=== PATIENT | female | born 1980 | race Caucasian/White ===

== ENCOUNTER → 2016-09-24 | Outpatient (CLI) | payer MEDICAID | END | disposition home or self-care (01) | LOC: MMGSC 16:41 | PROVIDERS: ATTEND Family Medicine | DX: E03.9 Hypothyroidism, unspecified (principal) | CPT/HCPCS: 36415; 84439; 84443 ==

== ENCOUNTER → 2017-02-04 | Outpatient (CLI) | payer MEDICAID, OTHER ==
[2017-02-04 21:14] LABS: Basophils # (A) 0.1 k/uL (0-0.2); Basophils % (A) 1 %; CH 26.9; Eosinophils # (A) 0.4 k/uL (0-0.7); Eosinophils % (A) 5 %; HCT 44.7 % (34.0-46.0); HDW 2.67; Hypochromasia Moderate; Luc # (Auto) 0.11; Luc % (Auto) 1; Lymphocytes # (A) 2.5 k/uL (1.0-4.8); Lymphocytes % (A) 31 %; MCH 27.2 pg (25.0-35.0); MCHC 31.3 g/dL (31.0-37.0); MCV 87.2 fL (80.0-100.0); Mean Platelet Volume 8.5; Monocytes # (A) 0.4 k/uL (0-1.0); Monocytes % (A) 4 %; Neutrophils # (A) 4.6 k/uL (1.3-7.7); Neutrophils % (A) 58 %; RBC 5.13 m/uL (3.80-5.40); RDW 14.8 % (11.5-15.5); WBC (Perox) 7.13
[2017-02-04 21:17] LABS: ALT 86 U/L (9-52); AST 73 U/L (14-36); Alkaline Phosphatase 65 U/L (38-126); Anion Gap 16 mmol/L; Blood Urea Nitrogen 11 mg/dL (7-17); Calcium 9.5 mg/dL (8.4-10.2); Carbon Dioxide 27 mmol/L (22-30); Chloride 103 mmol/L (98-107); Cholesterol 193 mg/dL (<200); Glucose 85 mg/dL (74-99); HDL Cholesterol 36 mg/dL (40-60); Non-African American GFR(MDRD) >60 (>60 ml/min/1.73 sqM); Sodium 146 mmol/L (137-145); Total Bilirubin 0.3 mg/dL (0.2-1.3); Total Protein 7.9 g/dL (6.3-8.2); Triglycerides 281 mg/dL (<150)
== END ==
LOC: MMGSC 15:48
PROVIDERS: ATTEND Family Medicine
DX: Z00.00 Encounter for general adult medical examination without abnormal findings (principal)
CPT/HCPCS: 36415; 80053; 80061; 84439; 84443; 85025

== ENCOUNTER → 2017-03-21 | Outpatient (CLI) | payer BC ==
[2017-03-21 14:27] VITALS: BP 136/83; PULSE 82; RESP 16; TEMP 97.1; BMI 52.7
--- NOTE | 2017-03-21 15:09 | P.HPBAR ---
Bariatric H&P - History & Physicial H&P Date: 03/21/17 History & Physicial: Visit/CC: sleeve consult Patient initial contact: Initial weight: 142.836 kg Initial weight in pounds: 314.90 Height: 5 ft 4.76 in Initial BMI: 52.7 Last weight: Current weight: 142.836 kg Current weight in pounds: 314.90 Current BMI: 52.7 [place] body weight (based on NIH guidelines): 56.155 kg Excess body weight loss: 0.0% The patient is a 36 year-old F who presents for Bariatric Assessment. Patient seen today at the bariatric clinic for a new patient evaluation. The patient has family members that have had both a gastric bypass and the sleeve gastrectomy. Patient is interested in sleeve gastrectomy at this point. The patient suffers from hypertension. She did have gestational diabetes in the past. Denies any history of DVT or dysphagia in the past. The patient has tried a variety of different weight loss modalities without any sustained weight loss. Review of Systems The patient denies any acute changes in vision or hearing, no dysphagia or odynophagia, no chest pain or shortness of breath, no dysuria or hematuria, no headache, no runny nose, no rectal bleeding or melena, no unexplained weight loss Past Medical History Past Medical History: Asthma, Thyroid Disorder Additional Past Medical History / Comment(s): GESTATIONAL DIABETES,VARICOSE VEINS,VERTIGO,IBS History of Any Multi-Drug Resistant Organisms: None Reported Past Surgical History: Section, Orthopedic Surgery Additional Past Surgical History / Comment(s): EXTERNAL PELVIC FIXATOR APPLIED AND REMOVAL,ORIF LT ANKLE, lasic, x2 Past Anesthesia/Blood Transfusion Reactions: Motion Sickness Past Psychological History: No Psychological Hx Reported Additional Psychological History / Comment(s): 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, since resolved Smoking Status: Never smoker Past Alcohol Use History: Rare Past Drug Use History: None Reported - Past Family History Father Family Medical History: Coronary Artery Disease (CAD), Diabetes Mellitus Additional Family Medical History / Comment(s): at age 62 Brother(s) Family Medical History: Cancer Additional Family Medical History / Comment(s): LYMPHOMA Mother Family Medical History: Deep Vein Thrombosis (DVT), Pulmonary Embolus Surgical - Exam Vital Signs Temp Pulse Resp BP 97.1 F L 82 16 136/83 03/21/17 14:20 03/21/17 14:20 03/21/17 14:20 03/21/17 14:20 Physical exam: General: Well-developed, well-nourished HEENT: Normocephalic, sclerae nonicteric Abdomen: Nontender, nondistended Extremities: No edema Neuro: Alert and oriented Bariatric Assessment & Plan (1) Morbid obesity Narrative/Plan: The surgical risks and benefits were discussed in detail with the patient today. All questions were appropriately answered. We'll tentatively schedule for basic lab work and upper endoscopy as a preoperative evaluation. Definitive bariatric procedure scheduling to follow. Status: Acute Bariatric Checklist Checklist: Plan: Checklist: EGD: 1. Hiatal hernia: 2. H. Pylori: HgbA1c: Vitamin D: Smoking: Never smoker Primary care physician referral: Carrol Merritt ([place]) Psychiatry clearance: Cardiology clearance: Sleep study: Diet journal: VTE risk score: VTE risk level: Rehab needs at discharge:
[2017-03-21 15:28] LABS: EKG EKG PERFORMED
[2017-03-21 16:05] LABS: CHCM 31.2; HGB 13.2 gm/dL (11.4-16.0); Hypochromasia Slight; MCHC 32.3 g/dL (31.0-37.0); MCV 86.9 fL (80.0-100.0); Mean Platelet Volume 7.9; RBC 4.72 m/uL (3.80-5.40); WBC 7.8 k/uL (3.8-10.6)
[2017-03-21 16:24] LABS: ALT 123 U/L (9-52); AST 87 U/L (14-36); Alkaline Phosphatase 61 U/L (38-126); Anion Gap 10 mmol/L; Blood Urea Nitrogen 11 mg/dL (7-17); Calcium 9.2 mg/dL (8.4-10.2); Carbon Dioxide 27 mmol/L (22-30); Chloride 105 mmol/L (98-107); Glucose 81 mg/dL (74-99); Iron 50 ug/dL (37-170); Non-African American GFR(MDRD) >60 (>60 ml/min/1.73 sqM); Potassium 4.5 mmol/L (3.5-5.1); Sodium 142 mmol/L (137-145); Total Bilirubin 0.3 mg/dL (0.2-1.3); Total Protein 7.5 g/dL (6.3-8.2)
[2017-03-21 17:11] LABS: Vitamin B12 298 pg/mL (239-931)
[2017-03-22 04:22] LABS: Hemoglobin A1C 5.7 % (4.2-6.1)
== END | disposition home or self-care (01) ==
LOC: BARWHC3 13:46
PROVIDERS: ATTEND Surgery
DX: E66.01 Morbid (severe) obesity due to excess calories (principal); K90.89 Other intestinal malabsorption; E55.9 Vitamin D deficiency, unspecified; I10 Essential (primary) hypertension; Z68.43 Body mass index [BMI] 50.0-59.9, adult
CPT/HCPCS: 80053; 82306; 82607; 83036; 83540; 84425; 85027; 93005; 99201

== ENCOUNTER 2017-04-19 12:06 | Day surgery (SDC) | payer BC ==
[2017-04-17 16:01] VITALS: BMI 51.7
[~2017-04-19 12:06] MED LIST: LACTATED RINGERS 1,000 ML IV SCH; LIDOCAINE 1% 20 ML VIAL (10MG/ML) FOR IV START INTRADERMA PRN
[2017-04-19 12:57] VITALS: TEMP 97.2
[2017-04-19 13:22] LABS: Glucose,Whole Blood 83 mg/dL (75-99)
[2017-04-19] MEDS ORDERED: LIDOCAINE 1% INJ 10MG/ML (20 ML MDV) ONE (13:55)
[2017-04-19] MEDS ORDERED: GLYCOPYRROLATE 0.2 MG/ML 2 ML VIAL ONE (13:55)
[2017-04-19] MEDS ORDERED: PROPOFOL 10 MG/ML 20 ML VIAL IV ONE (13:55)
--- NOTE | 2017-04-19 13:58 | P.GSHP ---
History of Present Illness H&P Date: 04/19/17 Chief Complaint: GERD Patient today for upper endoscopy. She's been worked up for possible bariatric surgery. She has mild intermittent reflux. Denies dysphagia. Past Medical History Past Medical History: Asthma, Thyroid Disorder Additional Past Medical History / Comment(s): HAD GESTATIONAL DIABETES,VARICOSE VEINS,VERTIGO,IBS History of Any Multi-Drug Resistant Organisms: None Reported Past Surgical History: Section, Orthopedic Surgery, Tubal Ligation Additional Past Surgical History / Comment(s): EXTERNAL PELVIC FIXATOR APPLIED AND REMOVAL,ORIF LT ANKLE, lasic, x2 Past Anesthesia/Blood Transfusion Reactions: Motion Sickness Smoking Status: Never smoker - Past Family History Father Family Medical History: Coronary Artery Disease (CAD), Diabetes Mellitus Additional Family Medical History / Comment(s): at age 62 Brother(s) Family Medical History: Cancer Additional Family Medical History / Comment(s): LYMPHOMA Mother Family Medical History: Deep Vein Thrombosis (DVT), Pulmonary Embolus Medications and Allergies Home Medications Medication Instructions Recorded Confirmed Type Levothyroxine Sodium [Synthroid] 100 mcg PO DAILY 08/20/14 04/19/17 History Albuterol Sulfate [Proair Hfa] 1 - 2 puff INHALATION Q6HR PRN 03/21/17 04/19/17 History Cholestyramine (with Sugar) 4 gm PO DAILY 03/21/17 04/19/17 History [Cholestyramine Packet] Triamterene-Hctz 37.5-25Mg 1 cap PO DAILY 03/21/17 04/19/17 History [Dyazide 37.5-25 Capsule] Ergocalciferol (Vitamin D2) 50,000 unit PO Q7D 04/17/17 04/19/17 History [Vitamin D2] Allergies Allergy/AdvReac Type Severity Reaction Status Date / Time egg Allergy Diarrhea Verified 04/19/17 12:40 lactose Allergy Diarrhea Verified 04/19/17 12:40 latex Allergy Rash/Hives Verified 04/19/17 12:40 soy Allergy Diarrhea Verified 04/19/17 12:40 Surgical - Exam Vital Signs Temp Pulse Resp BP Pulse Ox 97.2 F L 88 18 141/84 97 04/19/17 12:56 04/19/17 12:56 04/19/17 12:56 04/19/17 12:56 04/19/17 12:56 Physical exam: General: Well-developed, well-nourished HEENT: Normocephalic, sclerae nonicteric Abdomen: Nontender, nondistended Extremities: No edema Neuro: Alert and oriented Assessment and Plan (1) GERD (gastroesophageal reflux disease) Narrative/Plan: Will proceed with upper endoscopy at this time. Status: Acute
--- NOTE | 2017-04-19 14:12 | P.PCN ---
Date of Procedure: 04/19/17 Preoperative Diagnosis: Postoperative Diagnosis: Procedure(s) Performed: Preoperative Dx: GERD Postoperative Dx: Gastritis with small erosions Procedure: EGD with Bx Anesthesia: Sedation Endoscopist: Dr. Fang Specimens: Antrum Endoscopic Procedure: The patient was on the endoscopy table in the left decubitus position. The Olympus gastroscope was inserted into the oropharynx and passed under direct visualization to the region of the third portion of the duodenum. From that point the scope was slowly withdrawn inspecting all surfaces carefully. There were no neoplastic inflammatory or polypoid lesions throughout the duodenum. The pylorus was widely patent. The stomach was carefully inspected. There was antritis present with a few small erosions. A biopsy of the antrum took place to rule out H. pylori. Retroflexion revealed a normal hiatus. The esophagus was then carefully examined. There were no neoplastic inflammatory or polypoid lesions throughout the visualized esophagus. The patient was then taken to the recovery room in stable condition per anesthesia guidelines. Recommendations: Will begin antiacid therapy. Await biopsy results. Patient will follow up in the bariatric clinic in 3-4 weeks. Implants: Indications for Procedure: Operative Findings: Description of Procedure:
[2017-04-19 14:13] VITALS: RESP 16
[2017-04-19 14:41] VITALS: BP 136/91; PULSE 76
== END 2017-04-19 14:55 | disposition home or self-care (01) ==
LOC: ORWHC2ENDO 12:06
PROVIDERS: ATTEND Surgery
DX: K29.50 Unspecified chronic gastritis without bleeding (principal); J45.909 Unspecified asthma, uncomplicated; E07.9 Disorder of thyroid, unspecified; I10 Essential (primary) hypertension; Z79.899 Other long term (current) drug therapy; Z91.012 Allergy to eggs; Z91.040 Latex allergy status; Z91.011 Allergy to milk products
CPT/HCPCS: 81025; 88305; 88342; 43239; J2001; J2704

== ENCOUNTER → 2017-04-22 | Outpatient (CLI) | payer BC | END | disposition home or self-care (01) | LOC: MMGSC 09:31 | PROVIDERS: ATTEND Family Medicine | DX: E55.9 Vitamin D deficiency, unspecified (principal) | CPT/HCPCS: 36415; 82306 ==

== ENCOUNTER → 2017-05-06 | Outpatient (CLI) | payer BC ==
--- NOTE | 2017-05-06 12:17 | US ---
EXAMINATION TYPE: US liver DATE OF EXAM: 05/06/2017 COMPARISON: NONE CLINICAL HISTORY: Elevated LFTs R94.5. no symptoms EXAM MEASUREMENTS: Liver Length: 19.9 cm Gallbladder Wall: 0.2 cm CBD: 0.6 cm Right Kidney: 11.9 x 5.1 x 4.6 cm limited visibility due to bowel gas and habitus Pancreas: limited views appear, wnl Liver: difficult to penetrate, enlarged Gallbladder: wnl Evidence for sonographic Nassar's sign: no CBD: wnl Right Kidney: wnl There appears to be moderate fatty infiltration to the liver. Hepatomegaly is present in 19.9 cm. Nor mal less than 15.5 cm. IMPRESSION: 1. Hepatomegaly with moderate fatty infiltration liver.
== END | disposition home or self-care (01) ==
LOC: RADUSWWP 08:13
PROVIDERS: ATTEND Family Medicine
DX: K76.0 Fatty (change of) liver, not elsewhere classified (principal)
CPT/HCPCS: 76705

== ENCOUNTER → 2017-07-22 | Outpatient (CLI) | payer BC ==
[2017-07-22 12:53] VITALS: BMI 53.6
== END ==
LOC: BARWHC3 08:39
PROVIDERS: ATTEND Surgery
DX: Z71.3 Dietary counseling and surveillance (principal); E66.01 Morbid (severe) obesity due to excess calories; Z68.43 Body mass index [BMI] 50.0-59.9, adult
CPT/HCPCS: 97804

== ENCOUNTER → 2017-08-06 | Outpatient (CLI) | payer BC ==
[2017-08-06 13:03] LABS: Basophils % (A) 1 %; CH 26.5; CHCM 30.4; Eosinophils # (A) 0.3 k/uL (0-0.7); Eosinophils % (A) 4 %; HCT 41.9 % (34.0-46.0); HDW 2.43; HGB 12.9 gm/dL (11.4-16.0); Hypochromasia Moderate; Luc # (Auto) 0.15; Luc % (Auto) 2; Lymphocytes # (A) 2.2 k/uL (1.0-4.8); Lymphocytes % (A) 32 %; MCH 26.9 pg (25.0-35.0); MCHC 30.8 g/dL (31.0-37.0); MCV 87.5 fL (80.0-100.0); Mean Platelet Volume 8.1; Monocytes # (A) 0.3 k/uL (0-1.0); Monocytes % (A) 4 %; Neutrophils # (A) 3.9 k/uL (1.3-7.7); Neutrophils % (A) 57 %; RBC 4.79 m/uL (3.80-5.40); RDW 15.5 % (11.5-15.5); WBC 6.8 k/uL (3.8-10.6)
[2017-08-06 13:20] LABS: ALT 136 U/L (9-52); AST 109 U/L (14-36); Alkaline Phosphatase 53 U/L (38-126); Anion Gap 12 mmol/L; Blood Urea Nitrogen 17 mg/dL (7-17); Carbon Dioxide 28 mmol/L (22-30); Chloride 102 mmol/L (98-107); Glucose 86 mg/dL (74-99); Non-African American GFR(MDRD) >60 (>60 ml/min/1.73 sqM); Potassium 4.3 mmol/L (3.5-5.1); Sodium 142 mmol/L (137-145); Total Bilirubin 0.5 mg/dL (0.2-1.3); Total Protein 8.3 g/dL (6.3-8.2)
== END | disposition home or self-care (01) ==
LOC: LABPAT 12:08
PROVIDERS: ATTEND Surgery
DX: Z01.812 Encounter for preprocedural laboratory examination (principal)
CPT/HCPCS: 36415; 80053; 85025

== ENCOUNTER → 2017-08-27 | Outpatient (CLI) | payer BC ==
[2017-08-27 12:49] VITALS: BMI 47.8
[2017-08-27 12:56] VITALS: BP 115/91; PULSE 80; RESP 20; TEMP 98.3
--- NOTE | 2017-09-12 13:51 | P.BASOAP ---
Subjective Progress Note Date: 09/12/17 Principal diagnosis: Morbid obesity Patient returns after recent sleeve gastrectomy. Doing well. Mild discomforts are improving. Tolerating liquid and protein. No heartburn. Objective - Vital Signs Vital signs: Vital Signs Temp 98.3 F 08/27/17 12:40 Pulse 80 08/27/17 12:40 Resp 20 08/27/17 12:40 BP 115/91 08/27/17 12:40 Pulse Ox - Exam Abdomen: Incisions clean and dry, minimal tenderness Assessment/Plan (1) Morbid obesity Narrative/Plan: Continue gradually advancing diet. Gradually increase activity as well. Follow -up 2-3 weeks. Plan: Date: 08/27/17 Initial Weight: 142.836 kg Initial BMI: 52.8 Current Weight: 129.41 kg Current BMI: 47.8 Type of Surgery: Total Volume in Band: Previous Volume: Volume Removed: Volume Added: Band Size:
== END | disposition home or self-care (01) ==
LOC: BARWHC3 12:26
PROVIDERS: ATTEND Surgery
DX: E66.01 Morbid (severe) obesity due to excess calories (principal); E55.9 Vitamin D deficiency, unspecified; Z68.42 Body mass index [BMI] 45.0-49.9, adult
CPT/HCPCS: 97803; 99201; 99211

== ENCOUNTER → 2017-09-23 | Outpatient (CLI) | payer BC ==
[2017-09-23 09:04] LABS: ALT 94 U/L (9-52); AST 64 U/L (14-36); Albumin 4.3 g/dL (3.5-5.0); Alkaline Phosphatase 53 U/L (38-126); Anion Gap 12 mmol/L; Blood Urea Nitrogen 14 mg/dL (7-17); Calcium 9.9 mg/dL (8.4-10.2); Carbon Dioxide 29 mmol/L (22-30); Chloride 106 mmol/L (98-107); Glucose 108 mg/dL (74-99); Potassium 4.2 mmol/L (3.5-5.1); Sodium 147 mmol/L (137-145); Total Bilirubin 0.5 mg/dL (0.2-1.3); Total Protein 7.7 g/dL (6.3-8.2)
[2017-09-23 09:16] LABS: Anisocytosis Slight; HCT 45.7 % (34.0-46.0); HGB 13.9 gm/dL (11.4-16.0); Hypochromasia Moderate; MCH 26.9 pg (25.0-35.0); MCHC 30.4 g/dL (31.0-37.0); MCV 88.5 fL (80.0-100.0); Mean Platelet Volume 9.3; Platelet Count 219 k/uL (150-450); RBC 5.17 m/uL (3.80-5.40); RDW 16.3 % (11.5-15.5); WBC 5.4 k/uL (3.8-10.6)
[2017-09-23 15:56] LABS: Vitamin D 25 Hydroxy 25.4 ng/mL (30.0-100.0)
[2017-09-24 13:05] LABS: Vitamin A 34 ug/dL (38-106)
[2017-09-25 02:26] LABS: Vitamin B1 44 ug/L (38-122)
== END | disposition home or self-care (01) ==
LOC: LABWHC1 08:12
PROVIDERS: ATTEND Surgery
DX: E66.01 Morbid (severe) obesity due to excess calories (principal); E55.9 Vitamin D deficiency, unspecified; K90.89 Other intestinal malabsorption; K90.9 Intestinal malabsorption, unspecified; R79.89 Other specified abnormal findings of blood chemistry
CPT/HCPCS: 36415; 80053; 82306; 82607; 83540; 84425; 84590; 85027

== ENCOUNTER → 2017-09-24 | Outpatient (CLI) | payer BC ==
[2017-09-24 14:40] VITALS: BMI 46.4
--- NOTE | 2017-09-24 17:10 | P.BASOAP ---
Subjective Progress Note Date: 09/24/17 Principal diagnosis: Morbid obesity Patient returns for evaluation. Had labs just yesterday which showed a low iron , vitamin A, and vitamin D mild nausea at times and she has had 2 episodes of emesis. Overall she believes she is improving gradually. Protein and liquid intake in good range. Good Weight loss. Objective - Vital Signs Vital signs: Intake & Output 09/23/17 09/24/17 09/24/17 18:59 06:59 18:59 Weight 125.645 kg - Exam Abdomen: Soft, nondistended, nontender, incision clean and dry Assessment/Plan (1) Morbid obesity Narrative/Plan: Continue vitamin supplementation. Continue antiacid therapy. Zofran when necessary. Follow-up 6 weeks. Plan: Date: 09/24/17 Initial Weight: 142.836 kg Initial BMI: 52.8 Current Weight: 125.645 kg Current BMI: 46.4 Type of Surgery: Total Volume in Band: Previous Volume: Volume Removed: Volume Added: Band Size:
== END | disposition home or self-care (01) ==
LOC: BARWHC3 14:15
PROVIDERS: ATTEND Surgery
DX: E66.01 Morbid (severe) obesity due to excess calories (principal); Z68.42 Body mass index [BMI] 45.0-49.9, adult
CPT/HCPCS: 97803; 99211

== ENCOUNTER → 2017-10-29 | Outpatient (CLI) | payer BC ==
[2017-10-29 15:06] VITALS: BMI 43.2
[2017-10-29 15:11] VITALS: BP 130/82; PULSE 88; RESP 16; TEMP 98.1
--- NOTE | 2017-10-29 15:16 | P.BASOAP ---
Subjective Progress Note Date: 10/29/17 Principal diagnosis: Morbid obesity Patient doing well today. No pain. No heartburn while taking Prilosec. No dysphagia. She has lost 20 pounds in the last 5 weeks. She is due for a 3 month labs at the end of this month. Energy level has improved. Still taking her vitamins. Objective - Vital Signs Vital signs: Vital Signs Temp 98.1 F 10/29/17 15:08 Pulse 88 10/29/17 15:08 Resp 16 10/29/17 15:08 BP 130/82 10/29/17 15:08 Pulse Ox Intake & Output 10/28/17 10/29/17 10/29/17 18:59 06:59 18:59 Weight 116.981 kg - Exam Abdomen: Soft, nondistended, nontender Assessment/Plan (1) Morbid obesity Narrative/Plan: Will order three-month lab work. Continue omeprazole for now. Continue increasing activity. Dietary evaluation today. Follow-up with me in 4-6 weeks. Plan: Date: 10/29/17 Initial Weight: 142.836 kg Initial BMI: 52.8 Current Weight: 116.981 kg Current BMI: 43.2 Type of Surgery: Total Volume in Band: Previous Volume: Volume Removed: Volume Added: Band Size:
== END | disposition home or self-care (01) ==
LOC: BARWHC3 14:12
PROVIDERS: ATTEND Surgery
DX: Z09 Encounter for follow-up examination after completed treatment for conditions other than malignant neoplasm (principal); E66.01 Morbid (severe) obesity due to excess calories; E55.9 Vitamin D deficiency, unspecified; K90.89 Other intestinal malabsorption; Z68.43 Body mass index [BMI] 50.0-59.9, adult
CPT/HCPCS: 97803; 99211

== ENCOUNTER → 2017-11-25 | Outpatient (CLI) | payer BC ==
[2017-11-25 18:49] LABS: Basophils % (A) 1 %; Eosinophils # (A) 0.2 k/uL (0-0.7); Eosinophils % (A) 4 %; HCT 42.6 % (34.0-46.0); HGB 13.8 gm/dL (11.4-16.0); Lymphocytes # (A) 1.8 k/uL (1.0-4.8); Lymphocytes % (A) 29 %; MCH 27.4 pg (25.0-35.0); MCHC 32.3 g/dL (31.0-37.0); MCV 84.7 fL (80.0-100.0); Mean Platelet Volume 9.4; Monocytes # (A) 0.2 k/uL (0-1.0); Monocytes % (A) 4 %; Neutrophils # (A) 3.7 k/uL (1.3-7.7); Neutrophils % (A) 61 %; Platelet Count 223 k/uL (150-450); RBC 5.03 m/uL (3.80-5.40); RDW 15.1 % (11.5-15.5); WBC 6.1 k/uL (3.8-10.6)
[2017-11-25 18:59] LABS: ALT 60 U/L (9-52); AST 49 U/L (14-36); Albumin 4.2 g/dL (3.5-5.0); Alkaline Phosphatase 60 U/L (38-126); Anion Gap 11 mmol/L; Blood Urea Nitrogen 13 mg/dL (7-17); Calcium 9.8 mg/dL (8.4-10.2); Carbon Dioxide 30 mmol/L (22-30); Chloride 102 mmol/L (98-107); Cholesterol 208 mg/dL (<200); Glucose 99 mg/dL (74-99); HDL Cholesterol 36 mg/dL (40-60); LDL Cholesterol,Calculated 137 mg/dL (0-99); Potassium 3.7 mmol/L (3.5-5.1); Sodium 143 mmol/L (137-145); Total Bilirubin 0.6 mg/dL (0.2-1.3); Total Protein 7.8 g/dL (6.3-8.2); Triglycerides 173 mg/dL (<150)
== END | disposition home or self-care (01) ==
LOC: MMGSC 10:14
PROVIDERS: ATTEND Family Medicine
DX: Z00.00 Encounter for general adult medical examination without abnormal findings (principal); E03.9 Hypothyroidism, unspecified; Z98.84 Bariatric surgery status
CPT/HCPCS: 36415; 80053; 80061; 82306; 82607; 84439; 84443; 85025

== ENCOUNTER → 2017-12-02 | Outpatient (CLI) | payer BC ==
[2017-12-02 14:01] LABS: HCT 42.7 % (34.0-46.0); HGB 14.1 gm/dL (11.4-16.0); MCH 27.8 pg (25.0-35.0); MCHC 32.9 g/dL (31.0-37.0); MCV 84.4 fL (80.0-100.0); Platelet Count 245 k/uL (150-450); RBC 5.05 m/uL (3.80-5.40); RDW 14.9 % (11.5-15.5); WBC 9.1 k/uL (3.8-10.6)
[2017-12-02 14:12] LABS: ALT 49 U/L (9-52); AST 48 U/L (14-36); Albumin 4.5 g/dL (3.5-5.0); Alkaline Phosphatase 70 U/L (38-126); Anion Gap 13 mmol/L; Blood Urea Nitrogen 13 mg/dL (7-17); Carbon Dioxide 30 mmol/L (22-30); Chloride 99 mmol/L (98-107); Glucose 89 mg/dL (74-99); Potassium 3.7 mmol/L (3.5-5.1); Sodium 142 mmol/L (137-145); Total Bilirubin 0.6 mg/dL (0.2-1.3); Total Protein 8.2 g/dL (6.3-8.2)
[2017-12-02 20:37] LABS: Iron Saturation 8.08 (12.00-45.00)
[2017-12-02 20:44] LABS: Vitamin D 25 Hydroxy 24.3 ng/mL (30.0-100.0)
== END | disposition home or self-care (01) ==
LOC: LABWHC1 13:22
PROVIDERS: ATTEND Surgery
DX: E55.9 Vitamin D deficiency, unspecified (principal); R90.89 Other abnormal findings on diagnostic imaging of central nervous system
CPT/HCPCS: 36415; 80053; 82306; 83540; 83550; 84425; 85027

== ENCOUNTER → 2017-12-10 | Outpatient (CLI) | payer BC ==
[2017-12-10 14:48] VITALS: BP 129/83; PULSE 80; RESP 16; TEMP 97.7; BMI 41.4
--- NOTE | 2017-12-10 16:09 | P.BASOAP ---
Subjective Progress Note Date: 12/10/17 Principal diagnosis: Morbid obesity Patient doing well today. She has had a 12 pound weight loss since last visit. Denies heartburn, no nausea or vomiting, no pain. Her labs from last visit were reviewed and reveal a low iron and a low vitamin D. She is already taking supplementation. Objective - Vital Signs Vital signs: Vital Signs Temp 97.7 F 12/10/17 15:03 Pulse 80 12/10/17 15:03 Resp 16 12/10/17 15:03 BP 129/83 12/10/17 15:03 Pulse Ox Intake & Output 12/09/17 12/10/17 12/10/17 18:59 06:59 18:59 Weight 111.3 kg - Exam Abdomen: Soft, nontender, nondistended Assessment/Plan (1) Morbid obesity Narrative/Plan: Patient doing well at this time. We'll continue vitamin supplementation. Continue dietary and exercise regimen. We'll check 6 months labs at next visit. Plan: Date: 12/10/17 Initial Weight: 142.836 kg Initial BMI: 53.1 Current Weight: 111.3 kg Current BMI: 41.4 Type of Surgery: Total Volume in Band: Previous Volume: Volume Removed: Volume Added: Band Size:
== END | disposition home or self-care (01) ==
LOC: BARWHC3 14:18
PROVIDERS: ATTEND Surgery
DX: E66.01 Morbid (severe) obesity due to excess calories (principal); Z68.41 Body mass index [BMI] 40.0-44.9, adult
CPT/HCPCS: 99211

== ENCOUNTER → 2018-03-24 | Outpatient (CLI) | payer BC ==
[2018-03-24 11:14] LABS: HCT 42.7 % (34.0-46.0); HGB 13.7 gm/dL (11.4-16.0); MCH 28.1 pg (25.0-35.0); MCV 87.8 fL (80.0-100.0); Mean Platelet Volume 7.8; Platelet Count 231 k/uL (150-450); RBC 4.86 m/uL (3.80-5.40); RDW 13.8 % (11.5-15.5)
[2018-03-24 11:24] LABS: ALT 33 U/L (9-52); AST 26 U/L (14-36); Albumin 4.1 g/dL (3.5-5.0); Alkaline Phosphatase 65 U/L (38-126); Anion Gap 12 mmol/L; Blood Urea Nitrogen 16 mg/dL (7-17); Calcium 9.3 mg/dL (8.4-10.2); Carbon Dioxide 30 mmol/L (22-30); Chloride 102 mmol/L (98-107); Glucose 93 mg/dL (74-99); Sodium 144 mmol/L (137-145); Total Bilirubin 0.6 mg/dL (0.2-1.3); Total Protein 7.4 g/dL (6.3-8.2)
[2018-03-24 17:08] LABS: Vitamin D 25 Hydroxy 20.3 ng/mL (30.0-100.0)
[2018-03-24 17:09] LABS: Folate, Serum 3.3 ng/mL
== END | disposition home or self-care (01) ==
LOC: LABWHC1 09:47
PROVIDERS: ATTEND Surgery
DX: K90.89 Other intestinal malabsorption (principal); E55.9 Vitamin D deficiency, unspecified
CPT/HCPCS: 36415; 80053; 82306; 82607; 82746; 83540; 84425; 85027

== ENCOUNTER → 2018-04-08 | Outpatient (CLI) | payer BC ==
[2018-04-08 14:33] VITALS: BP 114/69; PULSE 114; TEMP 97.9; BMI 36.0
--- NOTE | 2018-04-08 14:56 | P.BASOAP ---
Subjective Progress Note Date: 04/08/18 Principal diagnosis: Morbid obesity Patient doing well today. Last appointment was in November. She had her six- month lab work drawn 2 weeks ago. Her vitamin D remains low. She remains on vitamin D supplementation. Denies GERD. Some nausea with room temperature water only. She is no longer taken Zofran. She is no longer taking antiacids. She has had a few episodes of dizziness and her blood pressure was slightly low. She is considering stopping her antihypertensives. She has lost 30 pounds since her last visit. Objective - Vital Signs Vital signs: Vital Signs Temp 97.9 F 04/08/18 14:30 Pulse 114 H 04/08/18 14:30 Resp BP 114/69 04/08/18 14:30 Pulse Ox Intake & Output 04/07/18 04/08/18 04/08/18 18:59 06:59 18:59 Weight 97.522 kg - Exam Abdomen: Soft, nontender, nondistended Assessment/Plan (1) Morbid obesity Narrative/Plan: Continue dietary and exercise regimen. Will discuss with primary care physician regarding stopping her antihypertensive. Follow-up 6 weeks. Plan: Date: 04/08/18 Initial Weight: 142.836 kg Initial BMI: 52.8 Current Weight: 97.522 kg Current BMI: 36.0 Type of Surgery: Total Volume in Band: Previous Volume: Volume Removed: Volume Added: Band Size:
== END | disposition home or self-care (01) ==
LOC: BARWHC3 14:15
PROVIDERS: ATTEND Surgery
DX: E66.01 Morbid (severe) obesity due to excess calories (principal); Z68.36 Body mass index [BMI] 36.0-36.9, adult; Z71.3 Dietary counseling and surveillance; Z79.899 Other long term (current) drug therapy
CPT/HCPCS: 97803; 99211

== ENCOUNTER → 2018-08-26 | Outpatient (CLI) | payer BC ==
[2018-08-26 14:40] VITALS: BP 114/73; PULSE 68; TEMP 97.4; BMI 35.5
--- NOTE | 2018-08-26 15:16 | P.BASOAP ---
Subjective Progress Note Date: 08/26/18 Principal diagnosis: Morbid obesity atient returns for one year visit. She has lost 3 pounds since her last visit. Appetite may be slightly increased although her calories still remain under 1200 per day. Lately she has had some pain at the site of her xiphoid which was previously injured. Denies reflux. No vomiting. She was having some dizzy episodes that resolved after stopping her Dyazide. Objective - Vital Signs Vital signs: Vital Signs Temp 97.4 F L 08/26/18 14:33 Pulse 68 08/26/18 14:33 Resp BP 114/73 08/26/18 14:33 Pulse Ox Intake & Output 08/25/18 08/26/18 08/26/18 18:59 06:59 18:59 Weight 96.162 kg - Exam Abdomen: Soft, nontender, nondistended Xiphoid region with mild tenderness, no evidence of pilonidal cyst Assessment/Plan (1) Morbid obesity Narrative/Plan: Patient doing well at this time. Continue dietary and exercise regimen. The patient will be following a treadmill and will be training for a organized run neck some her. We'll check one year labs at this time. Patient will follow-up with orthopedics if her pain at the sacrum persists. Plan: Date: 08/26/18 Initial Weight: 142.836 kg Initial BMI: 52.8 Current Weight: 96.162 kg Current BMI: 35.5 Type of Surgery: Total Volume in Band: Previous Volume: Volume Removed: Volume Added: Band Size:
== END | disposition home or self-care (01) ==
LOC: BARWHC3 14:14
PROVIDERS: ATTEND Surgery
DX: E66.01 Morbid (severe) obesity due to excess calories (principal); Z68.35 Body mass index [BMI] 35.0-35.9, adult
CPT/HCPCS: 97803; 99211

== ENCOUNTER → 2018-09-01 | Outpatient (CLI) | payer BC ==
[2018-09-01 09:37] LABS: HCT 38.6 % (34.0-46.0); HGB 11.7 gm/dL (11.4-16.0); Hypochromasia Slight; MCH 26.4 pg (25.0-35.0); MCHC 30.4 g/dL (31.0-37.0); MCV 86.9 fL (80.0-100.0); Mean Platelet Volume 7.8; Platelet Count 205 k/uL (150-450); RBC 4.44 m/uL (3.80-5.40); RDW 14.3 % (11.5-15.5); WBC 4.6 k/uL (3.8-10.6)
[2018-09-01 16:40] LABS: Albumin 4.1 g/dL (3.80-4.90); Albumin/Globulin Ratio 1.71 (1.20-2.10); Anion Gap 6.8 mmol/L (4.00-12.00); Carbon Dioxide 27.2 mmol/L (21.6-31.8); Globulin 2.4 g/dL (2.1-3.7); Potassium 4.8 mmol/L (3.5-5.5); Total Bilirubin 0.5 mg/dL (0.2-1.2); Total Protein 6.5 g/dL (6.2-8.2)
[2018-09-01 16:44] LABS: Folate, Serum 4.7 ng/mL; Vitamin D 25 Hydroxy 27.3 ng/mL (30.0-100.0)
== END | disposition home or self-care (01) ==
LOC: LABWHC1 08:52
PROVIDERS: ATTEND Surgery
DX: E66.01 Morbid (severe) obesity due to excess calories (principal); K90.89 Other intestinal malabsorption; E55.9 Vitamin D deficiency, unspecified
CPT/HCPCS: 36415; 80053; 82306; 82607; 82746; 83540; 84425; 85027

== ENCOUNTER → 2018-09-01 | Outpatient (CLI) | payer BC ==
--- NOTE | 2018-09-01 10:18 | MM ---
Reason for exam: screening (asymptomatic). Baseline mammogram. History: Family history of breast cancer in aunt at age 48. Physical Findings: Nurse did not find any significant physical abnormalities on exam. MG Screening Mammo w CAD Bilateral CC and MLO view(s) were taken. There are scattered fibroglandular densities. There is no discrete abnormality. These results were verbally communicated with the patient and result sheet given to the patient on 09/01/18. ASSESSMENT: Negative, BI-RAD 1 RECOMMENDATION: Routine screening mammogram of both breasts at age 40.
== END | disposition home or self-care (01) ==
LOC: RADMAMWWP 09:22
PROVIDERS: ATTEND Obstetrics & Gynecology
DX: Z12.31 Encounter for screening mammogram for malignant neoplasm of breast (principal)
CPT/HCPCS: 77067

== ENCOUNTER → 2019-09-22 | Outpatient (CLI) | payer BC ==
[2019-09-22 14:51] VITALS: BP 114/78; PULSE 73; RESP 16; TEMP 98.3; BMI 35.5
--- NOTE | 2019-09-22 17:09 | P.BASOAP ---
Subjective Progress Note Date: 09/22/19 Principal diagnosis: Morbid obesity Patient returns for reevaluation. Has not been seen in over one year. Doing fairly well. Maintaining her weight loss. She has been exercising regularly. She was able to run the five-mile swamp foot last year. Lately has had some slight increased heartburn. She describes a rash beneath the pannus at times. Objective - Vital Signs Vital signs: Vital Signs Temp 98.3 F 09/22/19 14:49 Pulse 73 09/22/19 14:49 Resp 16 09/22/19 14:49 BP 114/78 09/22/19 14:49 Pulse Ox Intake & Output 09/21/19 09/22/19 09/22/19 18:59 06:59 18:59 Weight 96.162 kg - Exam Abdomen: Soft, nontender, nondistended Assessment/Plan (1) Morbid obesity Narrative/Plan: Overall patient doing well. Maintaining her weight and is more active. Continued exercise and dietary regimen. Check annual labs. Patient will consider plastic surgery evaluation for panniculitis. Plan: Date: 09/22/19 Initial Weight: 142.836 kg Initial BMI: 52.8 Current Weight: 96.162 kg Current BMI: 35.5 Type of Surgery: Total Volume in Band: Previous Volume: Volume Removed: Volume Added: Band Size:
== END | disposition home or self-care (01) ==
LOC: BARWHC3 14:43
PROVIDERS: ATTEND Surgery
DX: E66.01 Morbid (severe) obesity due to excess calories (principal); Z68.35 Body mass index [BMI] 35.0-35.9, adult
CPT/HCPCS: 99211

== ENCOUNTER → 2019-09-25 | Outpatient (CLI) | payer BC ==
[2019-09-25 09:02] LABS: HCT 36.2 % (34.0-46.0); HGB 10.7 gm/dL (11.4-16.0); Hypochromasia Marked; MCHC 29.7 g/dL (31.0-37.0); MCV 80.8 fL (80.0-100.0); Mean Platelet Volume 7.8; Platelet Count 217 k/uL (150-450); RBC 4.47 m/uL (3.80-5.40); RDW 15.7 % (11.5-15.5)
[2019-09-25 18:43] LABS: Folate, Serum 4.9 ng/mL
[2019-09-25 18:47] LABS: African American GFR (CKD) 108.4 (60.0-200.0); Albumin 4.3 g/dL (3.80-4.90); Albumin/Globulin Ratio 1.79 (1.60-3.17); Anion Gap 6.2 mmol/L (4.00-12.00); Carbon Dioxide 26.8 mmol/L (21.6-31.8); Globulin 2.4 g/dL (1.6-3.3); Non-African American GFR(CKD) 93.5 (60.0-200.0); Potassium 4.8 mmol/L (3.5-5.5); Total Bilirubin 0.3 mg/dL (0.2-1.2); Total Protein 6.7 g/dL (6.2-8.2)
== END | disposition home or self-care (01) ==
LOC: LABWHC1 08:40
PROVIDERS: ATTEND Surgery
DX: E66.01 Morbid (severe) obesity due to excess calories (principal); K90.89 Other intestinal malabsorption; E55.9 Vitamin D deficiency, unspecified
CPT/HCPCS: 36415; 80053; 82306; 82607; 82746; 83540; 84425; 85027

== ENCOUNTER → 2020-03-29 | Outpatient (CLI) | payer BC ==
--- NOTE | 2020-03-29 16:59 | P.BASOAP ---
Subjective Progress Note Date: 03/29/20 Principal diagnosis: Morbid obesity Patient returns for reevaluation. Lately has had increased depression and anxiety. Activity level has decreased. She did see a plastic surgeon a few weeks ago. He wants her to lose an additional 40 pounds. Recent labs show a low iron and low hemoglobin. Patient states she is having heavy menses. Denies rectal bleeding or melena. Patient is training for a half marathon currently. With plastic surgery in July. Objective - Exam Abdomen: Soft, nontender, nondistended Assessment/Plan (1) Morbid obesity Narrative/Plan: Patient doing fairly well. Unfortunately had a slight weight gain recently. We will resume her exercise regimen. Continue monitoring caloric intake. Follow- up with plastics in July. Follow-up with myself in September. Repeat labs at that time. Patient discussing her heavy menses with her industrial x ray operator. Plan: Date: Initial Weight: 142.836 kg Initial BMI: Current Weight: Current BMI: Type of Surgery: Total Volume in Band: Previous Volume: Volume Removed: Volume Added: Band Size:
[2020-03-30 08:56] VITALS: BP 117/69; PULSE 62; TEMP 98.2; BMI 37.5
== END | disposition home or self-care (01) ==
LOC: BARWHC3 14:44
PROVIDERS: ATTEND Surgery
DX: E66.01 Morbid (severe) obesity due to excess calories (principal); Z68.38 Body mass index [BMI] 38.0-38.9, adult
CPT/HCPCS: 99211

== ENCOUNTER → 2020-10-11 | Outpatient (CLI) | payer BC ==
[2020-10-11 16:07] VITALS: BP 137/70; PULSE 76; RESP 16; TEMP 98.1; BMI 40.7
--- NOTE | 2020-10-11 16:36 | P.BASOAP ---
Subjective Progress Note Date: 10/11/20 Principal diagnosis: Morbid obesity Patient returns for recheck. She has gained some weight since last visit. More stress eating lately. Still feels good restriction. Started taking an antidepressant as well. Patient still exercising a fair amount. Mild heartburn. Patient stopped her antiacid a few years ago. No dysphagia. No vomiting. Objective - Vital Signs Vital signs: Vital Signs Temp 98.1 F 10/11/20 16:05 Pulse 76 10/11/20 16:05 Resp 16 10/11/20 16:05 BP 137/70 10/11/20 16:05 Pulse Ox Intake & Output 10/10/20 10/11/20 10/11/20 18:59 06:59 18:59 Weight 110.223 kg - Exam Abdomen: Soft, nontender, nondistended Assessment/Plan (1) Morbid obesity Narrative/Plan: Patient is overall doing fairly well. She has gained some weight but remains with these restriction and good exercise level. Will check annual labs. We'll give him refill of Prilosec prescription. Follow up 3 months. Plan: Date: 10/11/20 Initial Weight: 142.836 kg Initial BMI: 52.8 Current Weight: 110.223 kg Current BMI: 40.7 Type of Surgery: Total Volume in Band: Previous Volume: Volume Removed: Volume Added: Band Size:
== END | disposition home or self-care (01) ==
LOC: BARWHC3 15:23
PROVIDERS: ATTEND Surgery
DX: Z46.51 Encounter for fitting and adjustment of gastric lap band (principal); E66.01 Morbid (severe) obesity due to excess calories; Z68.43 Body mass index [BMI] 50.0-59.9, adult; Z98.84 Bariatric surgery status
CPT/HCPCS: 99211

== ENCOUNTER → 2020-11-29 | Outpatient (CLI) | payer BC ==
[2020-11-29 15:14] LABS: HCT 39.3 % (37.2-46.3); HGB 11.7 g/dL (12.0-15.0); MCH 25.9 pg (27.0-32.0); MCHC 29.8 g/dL (32.0-37.0); MCV 87.1 fL (80.0-97.0); Mean Platelet Volume 11.2 fL (9.5-12.2); Platelet Count 214 X 10*3/uL (140-440); RBC 4.51 X 10*6/uL (4.10-5.20); WBC 5.09 X 10*3/uL (4.50-10.00)
[2020-11-29 16:26] LABS: T4, Free (Free Thyroxine) 1.1 ng/dL (0.80-1.80)
[2020-11-29 16:31] LABS: African American GFR (CKD) 107.6 (60.0-200.0); Albumin 4.4 g/dL (3.80-4.90); Albumin/Globulin Ratio 1.76 (1.60-3.17); Anion Gap 6.9 mmol/L (4.00-12.00); BUN/Creat Ratio 17.5 Ratio (12.00-20.00); Calcium 9.1 mg/dL (8.7-10.3); Carbon Dioxide 27.1 mmol/L (21.6-31.8); Chol/HDL Ratio 4.83; Folate, Serum 20.9 ng/mL; Globulin 2.5 g/dL (1.6-3.3); LDL Cholesterol,Calculated 126.6 mg/dL (0.0-131.0); Non-African American GFR(CKD) 92.9 (60.0-200.0); Potassium 4.3 mmol/L (3.5-5.5); Total Bilirubin 0.3 mg/dL (0.3-1.2); Total Protein 6.9 g/dL (6.2-8.2); VLDL Calculation 34.4 mg/dL (5.00-40.00)
== END | disposition home or self-care (01) ==
LOC: LABWHC1 09:00
PROVIDERS: ATTEND Surgery
DX: E55.9 Vitamin D deficiency, unspecified (principal); K90.89 Other intestinal malabsorption; E66.01 Morbid (severe) obesity due to excess calories; I26.99 Other pulmonary embolism without acute cor pulmonale
CPT/HCPCS: 36415; 80053; 80061; 82306; 82607; 82746; 83540; 83735; 84425; 84439; 84443; 85027

== ENCOUNTER → 2021-01-31 | Outpatient (CLI) | payer BC ==
[2021-01-31 13:16] VITALS: BP 120/86; PULSE 76; TEMP 97.9; BMI 41.4
--- NOTE | 2021-01-31 15:39 | P.BASOAP ---
Subjective Progress Note Date: 01/31/21 Principal diagnosis: Morbid obesity Patient returns for follow-up. Overall doing fairly well. She has gained 4 pounds. So she is not drinking enough water and lately started drinking 1 gallon of water daily. She was taking her antiacids intermittently for mild reflux. She has been avoiding eating until noon every day. She was depressed although this is improving. Patient remains fairly active and has a new exercise sports athletic trainer. She signed up for [employer] runs in the near future. Objective - Vital Signs Vital signs: Vital Signs Temp 97.9 F 01/31/21 13:13 Pulse 76 01/31/21 13:13 Resp BP 120/86 01/31/21 13:13 Pulse Ox Intake & Output 01/30/21 01/31/21 01/31/21 18:59 06:59 18:59 Weight 112.037 kg - Exam Abdomen: Soft, nontender, nondistended Assessment/Plan (1) Morbid obesity Narrative/Plan: Overall patient doing fairly well. Unfortunately she did gain back 4 pounds since last visit. She is remaining active with her director personal. Continue post bariatric surgery diet. Plan follow-up in July. We'll check annual labs. Plan: Date: 01/31/21 Initial Weight: 142.836 kg Initial BMI: 52.8 Current Weight: 112.037 kg Current BMI: 41.4 Type of Surgery: Total Volume in Band: Previous Volume: Volume Removed: Volume Added: Band Size:
== END ==
LOC: BARWHC3 12:56
PROVIDERS: ATTEND Surgery
DX: E66.01 Morbid (severe) obesity due to excess calories (principal); Z68.41 Body mass index [BMI] 40.0-44.9, adult; Z98.84 Bariatric surgery status; Z91.012 Allergy to eggs; Z91.040 Latex allergy status; Z91.018 Allergy to other foods; Z91.011 Allergy to milk products
CPT/HCPCS: 99211

== ENCOUNTER → 2023-02-08 | Outpatient (CLI) | payer BC | END | disposition home or self-care (01) | LOC: LABWHC1 08:33 | PROVIDERS: ATTEND Family Medicine | DX: E78.5 Hyperlipidemia, unspecified (principal); K21.9 Gastro-esophageal reflux disease without esophagitis; R53.83 Other fatigue; R10.84 Generalized abdominal pain | CPT/HCPCS: 36415; 83695; 84481; 86003; 86376 ==

== ENCOUNTER → 2023-05-03 | Outpatient (CLI) | payer BC ==
--- NOTE | 2023-05-06 15:22 | MM ---
Reason for Exam: Screening (asymptomatic). Last mammogram was performed 1 year(s) and 4 month(s) ago. Patient History: Menarche at age 13. First Full-Term at age 30. Late child-bearing (after 30). Premenopausal. Patient has history of breast feeding. Maternal aunt had breast cancer, age 48. Last menstrual period: 04/08/2023 Risk Values: Sol 5 year model risk: 0.9%. NCI Lifetime model risk: 13.4%. Prior Study Comparison: 09/01/2018 Bilateral Screening Mammogram, [facility]. 01/12/2022 Bilateral Screening Mammogram, [facility]. Tissue Density: There are scattered fibroglandular densities. Findings: Analyzed By CAD. Pattern appears symmetrical and stable. No significant interval change is evident. No suspicious groups of microcalcifications, spiculated or lobular masses, architectural distortion or other secondary signs of malignancy are mammographically apparent. Overall Assessment: Benign, BI-RAD 2 Management: Screening Mammogram of both breasts in 1 year. A negative mammogram report should not preclude additional follow up of suspicious palpable abnormalities. Patient should continue monthly self breast exam. A clinical breast exam by your physician is recommended on an annual basis and results should be correlated with mammographic findings. Electronically signed and approved by: Rolf Frederick D.O. Radiologis
== END | disposition home or self-care (01) ==
LOC: RADMAMWWP 08:22
PROVIDERS: ATTEND Family Medicine
DX: Z12.31 Encounter for screening mammogram for malignant neoplasm of breast (principal); Z80.3 Family history of malignant neoplasm of breast
CPT/HCPCS: 77063; 77067

== ENCOUNTER → 2024-10-02 | Outpatient (CLI) | payer BC ==
[2024-10-02 15:36] LABS: % Iron Saturation 6.85 (12.00-45.00); Ferritin 7.2 ng/mL (10.0-291.0); Iron 33 UG/DL (50-170); LDL Cholesterol,Calculated 138.1 mg/dL (0.0-131.0); Total Iron Binding Capacity 482 UG/DL (228-460)
[2024-10-02 16:42] LABS: Basophils # (A) 0.04 X 10*3/uL (0.00-0.10); Basophils % (A) 0.7 %; Eosinophils # (A) 0.28 X 10*3/uL (0.04-0.35); Eosinophils % (A) 4.7 %; HCT 36.3 % (37.2-46.3); HGB 10.6 g/dL (12.0-15.0); Lymphocytes % (A) 33.6 %; MCH 23.3 pg (27.0-32.0); MCHC 29.2 g/dL (32.0-37.0); MCV 79.8 FL (80.0-97.0); Monocytes # (A) 0.35 X 10*3/uL (0.20-1.00); Monocytes % (A) 5.9 %; NRBC Per 100 WBC 0 X 10*3/uL (0.00-0.01); Neutrophils # (A) 3.28 X 10*3/uL (1.80-7.70); Neutrophils % (A) 54.9 %; Platelet Count 297 X 10*3/uL (140-440); RBC 4.55 X 10*6/uL (4.10-5.20); RDW 18.8 % (11.5-14.5); WBC 5.96 X 10*3/uL (4.50-10.00)
== END | disposition home or self-care (01) ==
LOC: LABWHC1 08:42
PROVIDERS: ATTEND Family Medicine
DX: Z00.00 Encounter for general adult medical examination without abnormal findings (principal); D64.9 Anemia, unspecified; E55.9 Vitamin D deficiency, unspecified
CPT/HCPCS: 36415; 80061; 82306; 82728; 83540; 83550; 85025

== ENCOUNTER → 2024-12-15 | Outpatient (CLI) | payer BC ==
--- NOTE | 2024-12-15 09:11 | MM ---
Reason for Exam: Screening (asymptomatic). Last mammogram was performed 1 year(s) and 8 month(s) ago. Patient History: Menarche at age 13. First Full-Term at age 30. Late child-bearing (after 30). Premenopausal. Patient has history of breast feeding. Patient used Hormonal Contraceptives for 10 years. Maternal aunt had breast cancer, age 48. Last menstrual period: 11/16/2024 Risk Values: Sol 5 year model risk: 1.0%. NCI Lifetime model risk: 13.2%. Prior Study Comparison: 09/01/2018 Bilateral Screening Mammogram, [facility]. 01/12/2022 Bilateral Screening Mammogram, [facility]. 05/03/2023 Bilateral MG 3D screening mammo w/cad, [facility]. Tissue Density: There are scattered areas of fibroglandular density. Findings: Analyzed By CAD. There is no suspicious group of microcalcifications or new suspicious mass in either breast. Overall Assessment: Negative, BI-RAD 1 Management: Screening Mammogram of both breasts in 1 year. . Patient should continue monthly self-breast exams. A clinical breast exam by your physician is recommended on an annual basis. This exam should not preclude additional follow-up of suspicious palpable abnormalities. Note on Sol scores and lifetime risk: 1. A Sol score greater than 3% is considered moderate risk. If this is the case, consider specialist referral to assess eligibility for a risk reducing agent. 2. If overall lifetime risk for the development of breast cancer is 20% or higher, the patient may qualify for future screening with alternating mammogram and breast MRI. [facility], , 12/15/2024 9:08 AM. Electronically signed and approved by: Sp Do M.D. Radiologis
== END | disposition home or self-care (01) ==
LOC: RADMAMWWP 08:47
PROVIDERS: ATTEND Obstetrics & Gynecology
DX: Z12.31 Encounter for screening mammogram for malignant neoplasm of breast (principal); R92.323 Mammographic fibroglandular density, bilateral breasts; Z92.0 Personal history of contraception; Z80.3 Family history of malignant neoplasm of breast
CPT/HCPCS: 77063; 77067

== ENCOUNTER → 2024-12-21 | Outpatient (CLI) | payer BC ==
--- NOTE | 2024-12-21 11:47 | CT ---
EXAMINATION TYPE: CT heart w calcium score DATE OF EXAM: 12/21/2024 9:29 AM COMPARISON: None. CLINICAL INDICATION: Female, 44 years old with history of Z13.9 Screening for cardiovascular, screeni ng for cardiovascular disease TECHNIQUE - Prospective Gating was used. Slice thickness: 3mm. Density threshold (HU): 130, Pixel threshold: 3, Algorithm: discrete Contrast used: mL of , (none if empty) Oral contrast used: (none if empty) CT DLP: 103.90 mGycm, Automated exposure control for dose reduction was used. FINDINGS: CT CALCIUM SCORING Coronary calcium is a marker for plaque (fatty deposits) in a blood vessel or atherosclerosis (harden ing of the arteries). The presence and amount of calcium detected in a coronary artery by the CT sca n, indicates the presence and amount of atherosclerotic plaque. These calcium deposits appear years before the development of heart disease symptoms such as chest pain and shortness of breath. A calcium score is computed for each of the coronary arteries based upon the volume and density of th e calcium deposits. This can be referred to as your calcified plaque burden. It does not correspond directly to the percentage of narrowing in the artery but does correlate with the severity of the un derlying coronary atherosclerosis. RESULTS Region: LM Calcium Score ([place]): 0 Volume (mm3): 0 Mass (g): 0 Region: RCA Calcium Score ([place]): 0 Volume (mm3): 0 Mass (g): 0 Region: LAD Calcium Score ([place]): 7.03 Volume (mm3): 10.54 Mass (g): 3.51 Region: CX Calcium Score ([place]): 0 Volume (mm3): 0 Mass (g): 0 Region: PDA Calcium Score ([place]): 0 Volume (mm3): 0 Mass (g): 0 Total: Calcium Score ([place]): 7.03 Volume (mm3): 10.54 Mass (g): 3.51 TOTAL CALCIUM SCORE: 7.03 IMPRESSION: Calcium Score: 7 Implication: Minimal plaquing is evident. Risk of Coronary Artery Disease: Low risk for significant stenosis Impression: 1. Minimal coronary artery atherosclerosis. CALCIUM SCORE IMPLICATION RISK OF C ORONARY ARTERY DISEASE 0 No identifiable plaque Very low, generally less than 5% 1-10 Minimal identifiable plaque Very unlikely, less than 10% 11-100 Definite, at least mild atherosclerotic plaque Mild or m inimal coronary narrowings likely 101-400 Definite, at least moderate atherosclerotic plaque Mild coronary ar andreas disease highly likely, significant narrowing possible 401 or Higher Extensive atherosclerotic plaque High lik elihood of at least one significant coronary narrowing [facility], , 12/21/2024 11:45 AM
== END | disposition home or self-care (01) ==
LOC: RADCTMAIN 08:48
PROVIDERS: ATTEND Family Medicine
DX: Z13.6 Encounter for screening for cardiovascular disorders (principal); I25.10 Atherosclerotic heart disease of native coronary artery without angina pectoris
CPT/HCPCS: 75571

== ENCOUNTER → 2025-03-26 | Day surgery (SDC) | payer BC ==
[2025-03-24 11:17] VITALS: BMI 29.0
[~2025-03-26] MED LIST changes: +ACETAMINOPHEN TAB 325 MG TAB PO SCH; +GLYCOPYRROLATE 0.2 MG/ML 2 ML VIAL ONE; +IBUPROFEN 600 MG TAB PO SCH; -LACTATED RINGERS 1,000 ML IV SCH; -LIDOCAINE 1% 20 ML VIAL (10MG/ML) FOR IV START INTRADERMA PRN; +LIDOCAINE 1% INJ 10MG/ML (20 ML MDV) ONE; +MIDAZOLAM 2 MG/2 ML VIAL ONE; +NEOSTIGMINE 1 MG/ML 10 ML VIAL ONE; +PHENYLEPHRINE 10 MG/ML VIAL ONE; +PROPOFOL 10 MG/ML 20 ML VIAL IV ONE; +ROCURONIUM 10 MG/ML (5 ML VIAL) IV ONE; +SUCCINYLCHOLINE CHLORIDE 200 MG/10 ML VIAL IV ONE; +WATER FOR INJECTION, STERILE 10 ML VIAL IV ONE; +ePHEDrine 50 MG/ML 1 ML VIAL ONE; +fentaNYL (PF) 50 MCG/ML 2 ML AMP ONE
[2025-03-26] MEDS: IV FLUID CONTINUATION 1,000 ML IV ONE (12:42)
[2025-03-26] MEDS: LACTATED RINGERS 1,000 ML IV SCH (12:43)
[2025-03-26] MEDS: ACETAMINOPHEN TAB 500 MG TAB PO PRN (12:48)
[2025-03-26] MEDS: HEPARIN SODIUM,PORCINE 5,000 UNIT/ML 1 ML VIAL SQ PRN (12:49)
[2025-03-26] MEDS: SCOPOLAMINE 1 MG/72 HR PATCH TRANSDERM STA (12:49)
[2025-03-26] MEDS: ONDANSETRON 4 MG/2 ML VIAL IVP STA (12:50)
[2025-03-26] MEDS: DEXAMETHASONE SOD PHOSPHATE 4 MG/ML 1 ML VIAL IVP STA (12:51)
[2025-03-26] MEDS: BUPIVACAINE (PF) 0.25% 30 ML VIAL SQ ONE ×3 (13:21→13:29)
[2025-03-26] MEDS: LACTATED RINGERS 1,000 ML IV ONE (14:01)
--- NOTE | 2025-03-26 14:27 | P.OP ---
Date of Procedure: 03/26/25 Procedure(s) Performed: PREOPERATIVE DIAGNOSIS: Chronic cholecystitis POSTOPERATIVE DIAGNOSIS: Same PROCEDURE: Laparoscopic cholecystectomy SURGEON: Annalisa EBL: 15 cc ANESTHESIA: Gen. COMPLICATIONS: None OPERATIVE PROCEDURE: The patient was brought and placed on the operating room table in the supine position. The patient was placed under general anesthesia at that time. The abdomen was prepped and draped in the usual sterile fashion. A small vertical periumbilical incision was made through the previous scar site. The fascia was grasped with the Lori forceps. The fascia was retracted anteriorly. The Veress needle was advanced into the peritoneal cavity. The saline drop test was normal. Insufflation took place up to 15 mmHg. A 5 mm optical trocar was advanced and the peritoneal cavity. 2 additional 5 mm trochars were placed in the right upper quadrant under direct visualization. A 12 mm trocar was advanced into the epigastric incision site. The gallbladder was retracted superiorly and laterally. The peritoneum overlying the infundibulum was bluntly dissected. The patient's cystic duct was visualized. The junction between the cystic duct common and hepatic duct was identified. The critical view of safety was achieved after blunt dissection. The cystic duct was then divided after placement of 3 12 mm clips on the patient's side and one on the specimen side. The cystic artery was identified and clipped as well. A small vessel was seen along the gallbladder fossa and clipped as well. The gallbladder was then removed from the liver bed using electrocautery. During the course of removing the gallbladder the clip on the specimen side of the cystic duct came loose and a moderate amount of bile and numerous small yellow gallstones evacuated. These were all carefully suctioned back up. At the completion of the case no further stones were able to be identified anywhere. The gallbladder was then removed from the epigastric trocar site with an Endo Catch bag. The gallbladder fossa was irrigated with saline. There was no evidence of any bleeding or biliary drainage seen. The fascia at the 12 millimeter site was closed using a Ramana-Ashleigh 0 Vicryl stitch. The trochars were then removed. The skin at all 4 sites was closed using a 4-0 Monocryl stitch. Skin glue was utilized on the incision sites. At the end of this procedure the sponge and needle counts were correct. DISPOSITION: Stable to the recovery room
[2025-03-26] MEDS: HYDROmorphone 0.5 MG/0.5 ML SYRINGE IVP PRN (14:50)
[2025-03-26 14:52] VITALS: TEMP 97.6
[2025-03-26] MEDS: traMADol 50 MG TAB PO STA (16:42)
[2025-03-26 17:25] VITALS: BP 134/71; PULSE 82; RESP 18
== END ==
LOC: OR 11:56
PROVIDERS: ATTEND Surgery
DX: K80.11 Calculus of gallbladder with chronic cholecystitis with obstruction (principal); I25.10 Atherosclerotic heart disease of native coronary artery without angina pectoris; E03.9 Hypothyroidism, unspecified; K21.9 Gastro-esophageal reflux disease without esophagitis; G43.909 Migraine, unspecified, not intractable, without status migrainosus; F41.9 Anxiety disorder, unspecified; F32.A Depression, unspecified; Z79.890 Hormone replacement therapy; Z79.899 Other long term (current) drug therapy; Z86.39 Personal history of other endocrine, nutritional and metabolic disease; Z98.84 Bariatric surgery status; Z91.012 Allergy to eggs; Z91.040 Latex allergy status; Z91.018 Allergy to other foods
CPT/HCPCS: 47562; 81025; 88304; J2250; J0330; J1644; J1100; J2710; J0690; J2405; J2003; J3010; J2704; J1171; J2371; J0665; J1596